=== PATIENT | male | born 1960 | race Caucasian/White ===

== ENCOUNTER → 2020-05-13 16:49 | Outpatient (CLI) | payer MEDICAID, SELFPAY ==
--- NOTE | 2020-05-13 16:54 | CT_ITS ---
ACR Level 3 findings have been noted. An addendum which confirms receipt of the report will follow. STUDY: CT ANGIOGRAM ABDOMEN AND PELVIS WITH CONTRAST REASON FOR EXAM: Male, 59 years old. AAA RADIATION DOSAGE (If Supplied By Facility): CTDIvol = ( 17.60 ) mGy, DLP = ( 350.60 ) mGycm. Individualized dose optimization techniques were used for this CT.? TECHNIQUE: Multiple axial images of the abdomen and pelvis were obtained from the base of the lungs to the proximal femurs after the administration of 100 mL of OMNIPAQUE 300. A series of 3-D MIPS reconstructed images were obtained of the aorta. COMPARISON: None. FINDINGS: There is emphysematous change within the lung bases. There is minimal right lower lobe atelectasis. There is a calcified granuloma in the left lung base. There is mild cardiac enlargement particularly the left ventricle. Area of the liver is homogeneous without visualized focal mass. The gallbladder is contracted. The spleen appears normal there is a 1 cm splenule demonstrated. The pancreas and adrenal glands appear normal. Both kidneys enhance appropriately without focal mass. The stomach and intestine appear normal. There is abundant stool in the colon from the cecum to the rectum. There is diverticulosis without visualized diverticulitis. The appendix is normal. There is mild prostate enlargement the bladder is fairly normal in appearance. The descending thoracic aorta measures 2.0 x 2.2 cm. There is a near common take off of a common hepatic artery. This is adjacent to the takeoff of the gastric and splenic vessels. Superior mesenteric arteries patent. Aorta at the level of the splenic mesenteric artery measures 2.4 x 2 cm. The bilateral renal arteries are patent. Distal to the takeoff of the renal arteries the aorta becomes aneurysmal. This is best demonstrated on image 41 coronal views and 79 and axial views. The lumen measures 2.6 x 3.4 cm over a segment measuring 5.9 cm. However there is abnormal wall thickening which is near circumferential relatively sparing the posterior aspect of the aorta. Including this wall thickening in the measurement the aorta measures 5.8 x 4.4 cm. There is brno-mo-xyaifgfk calcification the take off of the bilateral common iliacs. There is a probable small penetrating ulcer within the left common iliac, image #48 carotid views. There is a focus of moderate narrowing within the right common iliac. There is a small focus of irregular plaque in the right common iliac. There is a narrowed appearance of the bilateral takeoff of the internal iliac arteries. There is mild calcification of the bilateral common iliac arteries which incidentally appear to extend through the aforementioned peripheral soft tissue density surrounding the distal aorta. The abdominal wall appears grossly normal. There is degenerative change at L4-L5 and L5-S1. There is no significant neural foraminal narrowing or central stenosis. CT/CT ANGIO ABD&PEL W/O&W/DYE IMPRESSION: There is a infrarenal abdominal aortic aneurysm. The lumen measures 2.7 x 3.4 cm with the outer wall, included surrounding the aorta the measures 5.8 x 4.4 cm. There is a rim of soft tissue surrounding the wall sparing the posterior wall measuring up to 1.2 cm, surrounding the infrarenal aorta through the bifurcation. 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 The differential could potentially include a thick intramural hematoma. Constipation. 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 Electronically Signed: Susan Garcia MD at 6:36 EDT Tel , Service support ,
[2020-05-13 17:06] LABS: CREATININE FINGERSTICK < 0.6 mg/dL (0.70-1.30); EGFR FINGERSTICK > 60.0000 mL/min (>60)
== END ==
PROVIDERS: Referring Provider Surgery Vascular Surgery; Visit Provider Surgery Vascular Surgery
DX: I71.4 Abdominal aortic aneurysm, without rupture (principal); Z72.0 Tobacco use
CPT/HCPCS: 74174; Q9967

== ENCOUNTER → 2020-05-28 09:27 | Outpatient (CLI) | payer MEDICAID, SELFPAY ==
[2020-05-28 08:51] VITALS: BMI 19.8
[2020-05-28 12:04] LABS: Erythrocyte Sedimentation Rate 21 mm/hr (0-20)
[2020-05-28 12:20] LABS: Absolute Lymphocyte Count 1.51 X10^3/uL (0.83-4.51); Absolute Neutrophil Count 4.7 X10^3/uL (2.0-7.7); Basophil# 0.04 X10^3/uL; Basophil% 0.6 % (0-1); Eosinophil# 0.05 X10^3/uL; Eosinophils% 0.7 % (0-5); Hematocrit 43.3 % (40-54); Lymphocyte # 1.51 X10^3/ul (4.0); Lymphocyte % 21.8 % (19-41); Mean Corp Hgb Conc 32.3 g/dL (32-36); Mean Corpuscular Hgb 29.7 pg (27.0-32.0); Mean Corpuscular Volume 91.9 fL (80-94); Mean Platelet Vol. 10.7 fl (6.2-12.0); Monocyte# 0.59 X10^3/uL; Monocyte% 8.5 % (0-10); NRBC Flagged by Analyzer 0 % (0-5); Neutrophil # 4.73 X10^3/uL (2.7-7.7); Neutrophil % 68.1 % (47-70); Platelet Count 268 K/mm3 (150-450); RBC Distribution Width SD 47.1 fl (35.1-43.9); Red Blood Count 4.71 M/mm3 (4.6-6.2); White Blood Count 6.9 K/mm3 (4.4-11.0)
[2020-05-28 12:47] LABS: ALB/GLOB Ratio 0.8 RATIO (0.9-2.4); AST(SGOT) 16 U/L (15-37); Alanine Aminotransfer ALT/SGPT 22 U/L (16-61); Albumin, Serum 3.6 g/dL (3.2-5.0); Alkaline Phosphatase 99 U/L (45-117); Anion Gap 3 (5-15); BUN 13 mg/dL (7-18); BUN/Creat Ratio 16.8 RATIO (10-20); Calcium,Total 9.1 mg/dL (8.5-10.1); Chloride 104 mmol/L (98-107); Creatinine, Serum 0.77 mg/dL (0.70-1.30); EST Glomerular Filtration Rate 109 mL/min (>60); Est Glom Filt Rate - Afr Amer 132 mL/min (>60); Globulin 4.6 g/dL (2.2-4.2); Glucose 87 mg/dL (74-106); Potassium 4.3 mmol/L (3.5-5.1); Protein, Total 8.2 g/dL (6.4-8.2); Rheumatoid Factor < 10.0 IU/mL (<15); Sodium Level 138 mmol/L (136-145); T4 Free Direct 0.89 ng/dL (0.76-1.46); Thyroid Stim Hormone (TSH) 1.67 uIU/mL (0.358-3.74)
[2020-05-30 10:14] LABS: CCP IgG Antibodies 4 units (0-19)
== END ==
PROVIDERS: PCP Internal Medicine; Referring Provider Internal Medicine; Visit Provider Internal Medicine
DX: I77.6 Arteritis, unspecified (principal); Z13.29 Encounter for screening for other suspected endocrine disorder
CPT/HCPCS: 36415; 80053; 84439; 84443; 85025; 85652; 86140; 86200; 86431

== ENCOUNTER → 2020-05-30 12:13 | Outpatient (CLI) | payer MEDICAID, SELFPAY ==
[2020-05-28 08:51] VITALS: BMI 19.8
--- NOTE | 2020-05-30 12:14 | EKG12_ITS ---
Test Reason : PHYSICAL Blood Pressure : / mmHG Vent. Rate : 073 BPM Atrial Rate : 073 BPM P-R Int : 112 ms QRS Dur : 088 ms QT Int : 392 ms P-R-T Axes : 072 081 045 degrees QTc Int : 431 ms Normal sinus rhythm Normal ECG Confirmed by TABITHA BOB, ANKUR ([id number]), web content editor HEIDE ORTEGA ([id number]) on 05/31/2020 11:38:15 A M Referred By: Nelsy Quintanilla Confirmed By:RIKKI LU MD
== END ==
PROVIDERS: PCP Internal Medicine; Referring Provider Internal Medicine; Visit Provider Internal Medicine
DX: I10 Essential (primary) hypertension (principal); I49.9 Cardiac arrhythmia, unspecified
CPT/HCPCS: 93005

== ENCOUNTER → 2021-04-22 12:03 | Outpatient (CLI) | payer MEDICAID, SELFPAY ==
[2021-04-22 11:15] VITALS: BMI 19.8
[2021-04-22 15:21] LABS: Absolute Lymphocyte Count 2.14 X10^3/uL (0.83-4.51); Absolute Neutrophil Count 5.7 X10^3/uL (2.0-7.7); Basophil# 0.04 X10^3/uL; Basophil% 0.5 % (0-1); Eosinophil# 0.03 X10^3/uL; Eosinophils% 0.3 % (0-5); Hemoglobin 14.9 g/dL (13.0-16.5); Lymphocyte # 2.14 X10^3/ul (0.83-4.51); Lymphocyte % 24.9 % (19-41); Mean Corp Hgb Conc 33.1 g/dL (32-36); Mean Corpuscular Volume 96.8 fL (80-94); Mean Platelet Vol. 11.1 fl (6.2-12.0); Monocyte# 0.71 X10^3/uL; Monocyte% 8.2 % (0-10); NRBC Flagged by Analyzer 0 % (0-5); Neutrophil # 5.66 X10^3/uL (2.7-7.7); Neutrophil % 65.8 % (47-70); Platelet Count 205 K/mm3 (150-450); RBC Distribution Width CV 13.4 % (11.6-14.6); Red Blood Count 4.65 M/mm3 (4.6-6.2); White Blood Count 8.6 K/mm3 (4.4-11.0)
[2021-04-22 15:31] LABS: Erythrocyte Sedimentation Rate 10 mm/hr (0-20)
[2021-04-22 15:48] LABS: Anion Gap 6 (5-15); BUN 10 mg/dL (7-18); BUN/Creat Ratio 10.3 RATIO (10-20); CRP < 2.90 mg/L (0.0-3.0); Chloride 105 mmol/L (98-107); Creatinine, Serum 0.97 mg/dL (0.70-1.30); EST Glomerular Filtration Rate 84 mL/min (>60); Est Glom Filt Rate - Afr Amer 102 mL/min (>60); Glucose 90 mg/dL (74-106); Potassium 4.4 mmol/L (3.5-5.1); Rheumatoid Factor < 10.0 IU/mL (<15); Sodium Level 140 mmol/L (136-145)
[2021-04-25 12:04] LABS: ANTINUCLEAR ANTIBODIES DIRECT Negative (Negative)
== END ==
PROVIDERS: PCP Internal Medicine; Referring Provider Internal Medicine; Visit Provider Internal Medicine
DX: M19.90 Unspecified osteoarthritis, unspecified site (principal)
CPT/HCPCS: 36415; 80048; 85025; 85652; 86038; 86140; 86225; 86235; 86431

== ENCOUNTER → 2021-05-09 13:22 | Outpatient (CLI) | payer MEDICAID, SELFPAY ==
[2021-05-08 08:33] VITALS: BMI 20.5
--- NOTE | 2021-05-09 13:24 | CT_ITS ---
EXAM: CT ANGIOGRAPHY ABDOMEN AND PELVIS WITHOUT AND WITH INTRAVENOUS CONTRAST CLINICAL INDICATION: Lower abdominal pain, history of aortitis/aneurysm TECHNIQUE: Helically acquired angiography images were obtained of the abdomen and pelvis without and with intravenous contrast. This CT exam was performed using one or more of the following dose reduction techniques: automated exposure control, adjustment of the mA and/or kV according to patient size, and/or use of iterative reconstruction technique. This report was created using One [employer] One report generation technology. MIP reconstructed images were created and reviewed. CONTRAST: IV 100mL Isovue-370 COMPARISON: CTA 05/13/2020. FINDINGS: VASCULATURE: AORTA: Infrarenal fusiform abdominal aortic aneurysm measures 3.0 x 3.6 cm. Circumferential thickening (8 mm) aortic wall extends from the PURA to the aortic bifurcation. The wall thickening has overall decreased since prior CT angiogram when it measured up to 11 mm in thickness. No dissection. CELIAC TRUNK AND MESENTERIC ARTERIES: See above. RENAL ARTERIES: No acute findings. No occlusion or significant stenosis. No dissection. ILIAC ARTERIES: Atherosclerosis and tortuosity of the bilateral common iliac arteries but no hemodynamically significant stenosis. No dissection. LOWER THORAX: Unremarkable. Lung bases are clear. No cardiomegaly. No significant pericardial effusion. ABDOMEN: LIVER: Unremarkable. Homogeneous. No focal mass. GALLBLADDER AND BILE DUCTS: Unremarkable. No calcified gallstones. No gallbladder distention or wall edema. No intra- or extrahepatic biliary ductal dilation. PANCREAS: Unremarkable. No focal cystic or solid mass. SPLEEN: Unremarkable. Normal size without focal cystic or solid mass. ADRENALS: Unremarkable. No nodules. KIDNEYS AND URETERS: Unremarkable. Normal renal size and position. No hydronephrosis. STOMACH AND BOWEL: Diverticulosis throughout the colon. No stomach or bowel distention. No focal inflammatory change. PELVIS: APPENDIX: No evidence of acute appendicitis. BLADDER: Unremarkable. REPRODUCTIVE: Unremarkable as visualized. No mass. ABDOMEN and PELVIS: INTRAPERITONEAL SPACE: Unremarkable. No ascites or other fluid collection. No free air. BONES/JOINTS: Unremarkable. No suspicious lytic or blastic abnormality. SOFT TISSUES: Unremarkable. No discrete abdominal or pelvic wall hernia. LYMPH NODES: Unremarkable. No enlarged lymph nodes. 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 Electronically Signed: Tim Sanders MD ([place]) at 9:02 EDT , Service support ,
== END ==
PROVIDERS: PCP Internal Medicine; Referring Provider Internal Medicine; Visit Provider Internal Medicine
DX: I71.4 Abdominal aortic aneurysm, without rupture (principal); I77.6 Arteritis, unspecified; R10.32 Left lower quadrant pain
CPT/HCPCS: 74174; Q9967

== ENCOUNTER 2021-05-20 09:25 | Day surgery (SDC) | payer MEDICAID, SELFPAY ==
[2021-05-08 08:33] VITALS: BMI 20.5
--- NOTE | 2021-05-20 | COLBX_PTH ---
PATIENT: MARCE RIOS LOC: EN U#:[id number] AGE/SX: 60/M ROOM: RE05/20/[address]: Dr. Mich Bates MD : 1960 BED: DIS: 05/20/2021 SPEC #: [id number] RECD: 05/20/21 12:06 STATUS: ROMANA ARMANDOChano #: [id number] MIRNA: 05/20/21 00:[address]: Mich Bates DEPT: SURGICAL PATHOLOGY RECD BY: Jeremie Mckeon ENTERED: 05/20/21 12:07 SP TYPE: COLON BX OTHR DR: Dr. Briseida Mackenzie MD Tissues: A - Duodenum, NOS B - Gastric mucous membrane C - Esophageal mucous membrane Procedures: Surgery Specimen Level IV HEADER OPERATION: Colonoscopy, EGD ([facility] [place] PRE-OP DIAGNOSIS: Constipation, early satiety, weight loss TISSUE SUBMITTED: A - Biopsy of duodenum, B - Biopsy of antrum for H. pylori and path, C - Biopsy of distal esophagus MICROSCOPIC DIAGNOSIS A. 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 B. Gastric antrum, biopsy: Minimal chronic inflammation. See comment. C. Distal esophagus, biopsy: Focal changes of reflux. AM:juliane 05/21/2021 COMMENT B. The results of immunohistochemistry for Helicobacter pylori will be reported separately ([id number]). MICROSCOPIC DESCRIPTION Slides are reviewed. GROSS DESCRIPTION A - Received in fixative is one container labeled with the patient's name and designated duodenum biopsy. The specimen consists of one irregular fragment of light newman soft tissue that measures 0.5 x 0.2 x 0.1 cm. The specimen is totally submitted in one cassette. B - Received in fixative is one container labeled with the patient's name and designated antrum biopsy. The specimen consists of one irregular fragment of light newman soft tissue that measures 0.2 x 0.2 x 0.1 cm. The specimen is totally submitted in one cassette. C - Received in fixative is one container labeled with the patient's name and designated distal esophagus. The specimen consists of one irregular fragment of light newman soft tissue that measures 0.3 x 0.2 x 0.1 cm. The specimen is totally submitted in one cassette. / AM:juliane 05/20/21 TC:3 CPT: 49260 x3
--- NOTE | 2021-05-20 07:30 | IMM_PTH ---
PATIENT: MARCE RIOS LOC: EN U#:[id number] AGE/SX: 60/M ROOM: RE05/20/[address]: Dr. Mich Bates MD : 1960 BED: DIS: 05/20/2021 SPEC #: [id number] RECD: 05/20/21 11:55 STATUS: ROMANA REQ #: [id number] MIRNA: 05/20/21 07:[address]: Mich Bates DEPT: IMMUNOHISTOCHEMISTRY RECD BY: Ida Kaiser ENTERED: 05/20/21 11:55 SP TYPE: IMMUNO OTHR DR: Dr. Briseida Mackenzie MD Tissues: B - Stomach, NOS Procedures: H Pylori (initial) PHYSICIAN & INSTITUTION [place] [id number] SPECIMEN INFORMATION: Tissue Source: B ? Biopsy of antrum Clinical Info: Constipation, early satiety, weight loss Specimen Number: [id number] CPT code: 38122 METHODOLOGY: Deparaffinized sections of prefer/formalin-fixed tissue or PAP/DQ stained slides are incubated with monoclonal/polyclonal antibodies/oligonucleotide probes. Localization is made via biotin free immunoperoxidase method. Appropriate controls are performed and reacted as expected. Results on target cell population are indicated in the following table: RESULTS: ANTIBODY / CLONE RESULT Block B H Pylori (polyclonal) negative These tests were developed and their performance characteristics determined by [facility]. They may not have been cleared or approved by the U.S. Food and Drug Administration. The FDA has determined that such clearance or approval is not necessary. INTERPRETATION: B. Antrum biopsy: Negative for Helicobacter pylori organisms. AM:juliane 05/21/2021
[2021-05-20 09:41] VITALS: BP 129/71; PULSE 95; RESP 16; TEMP 36.9
[2021-05-20] MEDS: Lactated Ringers 1,000 ML 100 ML IV (09:52)
--- NOTE | 2021-05-20 09:54 | HP.PCM_ITS ---
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 Mich Bates MD) AAA (abdominal aortic aneurysm) without rupture Anxiety Constipation Fatigue Heart murmur Weight loss Surgical History (Updated 05/08/21 @ 08:32 by Luz Askew) History of rhinoplasty History of tonsillectomy and adenoidectomy Family History Mother Diabetes Social History (Updated 05/08/21 @ 08:33 by Luz Askew) Smoking Status: Current every day smoker alcohol intake: never substance use type: marijuana caffeine: Yes what type of physical activity do you participate in: none, walking and other details: Hikes with dogs frequency: 3-4 times per week HPI HPI HPI: MARCE RIOS, is a 60 M who presents to the office today for surgical consultation regarding abdominal pain. Patient has orchitis and a abdominal aortic aneurysm. His vascular surgeon is Dr. Reynold Roberts. He is smoking a pack per day cigarettes. He does have problems with progress to constipation. As of April 22, 2021 white blood cell count was 8.6 with hemoglobin 14.9 and hematocrit of 45 and a platelet count of 205,000 with a normal differential. BUN is 10 creatinine 0.97. C-reactive protein at that time was less than 2.9. 1 year prior it had been as high as 14.1. The patient is referred by Dr. Briseida Mackenzie and a written copy of my surgical consult recommendations will return to him. Is of additional note that dictation a year year and a half ago had about a 20 pound weight loss. He is finding it difficult to regain the weight. He also claims that he has a very poor appetite and early satiety. He claims that a year and a half ago for his bowels he would take a tablespoon of Mylanta in the evening and by morning he would have diarrhea now he is just simply trying fruits and high-fiber foods. He is stopped Metamucil and is not taking any antacid. His constipation problems have worsened. ROS General General: Yes weight change and fatigue; No appetite, colon cancer, breast cancer or weakness HEENT HEENT: No difficulty swallowing, eye injury, eye surgery, swollen glands or hoarseness Endo Endocrine: No thyroid disease, diabetes mellitus, thyroid cancer, Hair loss, heat intolerance or cold intolerance Skin Skin: No rash or changing moles Musc Musculoskeletal: Yes back problems and arthritis; No rheumatoid arthritis, gout or joint pain Cardio Cardiovascular: Yes murmur; No pacemaker, heart disease, atrial fibrillation, high blood pressure, heart attack, heart stent, palpitations, shortness of breat with exertion or chest pain Psych Psychiatric: Yes anxiety; No depression or hearing voices Resp Respiratory: No shortness of breath, No sleep apnea, Yes cough, No COPD, No asthma, No emphysema and No wheezing Gastro Gastrointestinal: Yes abdominal pain, No nausea or vomiting, No diarrhea, Yes constipation, No blood in stool, No acid reflux, No hemorrhoids, No ulcers, No gallbladder problem and No black,tarry stools Travis Hematologic: No blood thinners, No blood disorders, No bleeding, No anemia and No blood clots Neuro Neurologic: No weakness Exam Const General: cooperative, comfortable and no acute distress Nutritional Appearance: underweight Orientation: alert and awake [facility] Head: normal to inspection Chest Other: Increased anterior posterior diameter Resp Effort & Inspection: normal respiratory effort Auscultation: clear to auscultation bilaterally Cardio Rate: regular rate GI Palpation: soft and no hepatosplenomegaly Auscultation: normal bowel sounds Other: Nontender Musc Cervical Spine: normal cervical lordosis Neuro General: patient alert, patient awake and patient oriented x3 Extrem General: no calf tenderness Psych Appearance: grossly normal COVID (Procedure Consent) Procedure Criteria Procedure Criteria: Yes Elective The surgeon/proceduralist and patient have discussed in detail the risk of exposure to and/or potential harm posed by the COVID-19 virus with having a surgery/procedure at this time versus the risk of delaying the surgery/procedure. It is not possible to know either the risk of delaying the surgery or procedure or chance of getting an infection with perfect accuracy, but a joint decision was made between the patient and the surgeon/proceduralist to proceed at this time with the scheduled surgery/procedure as indicated on the consent form. Assessment and Plan Assessment and Plan (1) Constipation: Status: Acute Qualifiers: Constipation type: other constipation type Qualified Code(s): K59.09 - Other constipation (2) Early satiety: Status: Acute (3) History of weight loss: Status: Acute Plan - Dr. Mich Bates MD: 60-year-old gentleman. Approximately a year year and a half ago he had almost a 20 pound weight loss. Been able to regain some of the weight but he complains of early satiety and a very poor appetite. He has chronic constipation. He currently is trying to treat that with natural diet. I propose for him a combined esophagogastroduodenoscopy with possible biopsy looking for occult source for early satiety as well as a colonoscopy with possible biopsy or polypectomy as indicated looking for source of severe chronic constipation. He was previously on Metamucil but is currently to keep his bowels moving without it. He will have to go however 3-5 small movements in the morning on just his natural diet. He may well need additional bowel assistance. He has had an opportunity to ask the questions answered. He is back up to smoking at least a pack per day of tobacco as well as additional use. We will utilize monitored anesthesia care. We will utilize a 2-day bowel prep. I appreciate the opportunity of assisting with surgical care Copy: Dr. Briseida Bates M.D., F.A.C.S. Coding Level of Care Code 77234 Diagnoses Constipation K59.09 Constipation type: other constipation type Early satiety R68.81 History of weight loss Z87.898 I have re-examined the patient. There are no clinical changes since date of exam. Mich Bates M.D., F.A.C.S.
--- NOTE | 2021-05-20 10:37 | OP.EGD_ITS ---
Patient Name: John Eric Procedure Date: 05/20/2021 9:42 AM Date of : 1960 Age: 60 Procedure: Upper GI endoscopy Indications: Weight loss Providers: Mich Bates MD Medicines: See the Anesthesia note for documentation of the administered medications Complications: No immediate complications. Procedure: Pre-Anesthesia Assessment: - Prior to the procedure, a History and Physical was performed, and patient medications and allergies were reviewed. The patient's tolerance of previous anesthesia was also reviewed. The risks and benefits of the procedure and the sedation options and risks were discussed with the patient. All questions were answered, and informed consent was obtained. Prior Anticoagulants: The patient has taken no previous anticoagulant or antiplatelet agents. ASA Grade Assessment: II - A patient with mild systemic disease. After reviewing the risks and benefits, the patient was deemed in satisfactory condition to undergo the procedure. After obtaining informed consent, the endoscope was passed under direct vision. Throughout the procedure, the patient's blood pressure, pulse, and oxygen saturations were monitored continuously. The Endoscope was introduced through the mouth, and advanced to the second part of duodenum. The upper GI endoscopy was accomplished without difficulty. The patient tolerated the procedure well. Scope In: 10:09:02 AM Scope Out: 10:12:56 AM Total Procedure Duration Time 0 hours 3 minutes 54 seconds Findings: Esophagitis with no bleeding was found 42 cm from the incisors. Biopsies were taken with a cold forceps for histology. A medium-sized hiatal hernia was present. The entire examined stomach was normal. Biopsies were taken with a cold forceps for histology. The examined duodenum was normal. Biopsies were taken with a cold forceps for histology. Impression: - Reflux esophagitis. Biopsied. - Medium-sized hiatal hernia. - Normal stomach. Biopsied. - Normal examined duodenum. Biopsied. Recommendation: - Discharge patient to home. - Resume previous diet. - Continue present medications. - Telephone my office for pathology results in 1 week. No findings to correlate with early satiety or weight loss Procedure Code(s): --- Professional --- 42474, Esophagogastroduodenoscopy, flexible, transoral; with biopsy, single or multiple Diagnosis Code(s): --- Professional --- K21.0, Gastro-esophageal reflux disease with esophagitis K44.9, Diaphragmatic hernia without obstruction or gangrene R63.4, Abnormal weight loss CPT copyright 2017 [employer]. All rights reserved. The codes documented in this report are preliminary and upon manager procurement review may be revised to meet current compliance requirements. Mich Bates MD 05/20/2021 10:37:05 AM This report has been signed electronically. Number of Addenda: 0 Note Initiated On: 05/20/2021 9:42 AM
--- NOTE | 2021-05-20 10:38 | OP.CCLET_ITS ---
05/20/2021 Briseida Mackenzie [facility] [address] [place] [address] Re : Upper GI endoscopy procedure for John Eric Dear Dr. Mackenzie This procedure was performed on Thursday, May 20, 2021. My impressions and recommendations are as follows: Impressions : - Reflux esophagitis. Biopsied. - Medium-sized hiatal hernia. - Normal stomach. Biopsied. - Normal examined duodenum. Biopsied. Recommendations : - Discharge patient to home. - Resume previous diet. - Continue present medications. - Telephone my office for pathology results in 1 week. No findings to correlate with early satiety or weight loss My findings are described in the full procedure note, which is enclosed. If I can be of further assistance, please feel free to contact me at Doctor phone number(s): Work: . Sincerely, Mich Bates MD 05/20/2021 10:37:05 AM This report has been signed electronically.
[2021-05-20 10:41] VITALS: BP 129/71; BP 91/66; PULSE 82; RESP 16; TEMP 36.5; O2SAT 94
--- NOTE | 2021-05-20 10:41 | OP.COLON_ITS ---
Patient Name: John Eric Procedure Date: 05/20/2021 10:13 AM Date of : 1960 Age: 60 Procedure: Colonoscopy Indications: Constipation Providers: Mich Bates MD Medicines: See the Anesthesia note for documentation of the administered medications Patient Profile: Last Colonoscopy: none. The patient's first colonoscopy is today. Complications: No immediate complications. Procedure: Pre-Anesthesia Assessment: - Prior to the procedure, a History and Physical was performed, and patient medications and allergies were reviewed. The patient's tolerance of previous anesthesia was also reviewed. The risks and benefits of the procedure and the sedation options and risks were discussed with the patient. All questions were answered, and informed consent was obtained. Prior Anticoagulants: The patient has taken no previous anticoagulant or antiplatelet agents. ASA Grade Assessment: II - A patient with mild systemic disease. After reviewing the risks and benefits, the patient was deemed in satisfactory condition to undergo the procedure. After I obtained informed consent, the scope was passed under direct vision. Throughout the procedure, the patient's blood pressure, pulse, and oxygen saturations were monitored continuously. The Colonoscope was introduced through the anus and advanced to the cecum, identified by appendiceal orifice and ileocecal valve. The colonoscopy was performed with moderate difficulty due to multiple diverticula in the colon. The patient tolerated the procedure well. The quality of the bowel preparation was fair. The ileocecal valve and the appendiceal orifice were photographed. Scope In: 10:15:25 AM Scope Withdrawal Time 0 hours 7 minutes 20 seconds Scope Out: 10:31:22 AM Total Procedure Duration Time 0 hours 15 minutes 57 seconds Findings: The digital rectal exam findings include enlarged prostate. Multiple small and large-mouthed diverticula were found in the entire colon. There was no evidence of diverticular bleeding. The exam was otherwise without abnormality. Impression: - Preparation of the colon was fair. - Enlarged prostate found on digital rectal exam. - Severe diverticulosis in the entire examined colon. There was no evidence of diverticular bleeding. - The examination was otherwise normal. - No specimens collected. Recommendation: - Discharge patient to home. - Resume previous diet. - Continue present medications. - Miralax 1 capful (17 grams) in 8 ounces of water PO PRN. - Repeat colonoscopy in 10 years for screening purposes. Very severe diverticular disease of the left colon throughout. This may affect bowel motility. Will recommend MiraLAX therapy. Procedure Code(s): --- Professional --- 63850, Colonoscopy, flexible; diagnostic, including collection of specimen(s) by brushing or washing, when performed (separate procedure) Diagnosis Code(s): --- Professional --- K59.00, Constipation, unspecified K57.30, Diverticulosis of large intestine without perforation or abscess without bleeding N40.0, Benign prostatic hyperplasia without lower urinary tract symptoms CPT copyright 2017 [employer]. All rights reserved. The codes documented in this report are preliminary and upon log raft worker review may be revised to meet current compliance requirements. Mich Bates MD 05/20/2021 10:41:31 AM This report has been signed electronically. Number of Addenda: 0 Note Initiated On: 05/20/2021 10:13 AM
--- NOTE | 2021-05-20 10:42 | OP.CCLET_ITS ---
05/20/2021 Briseida Mackenzie [facility] [address] [place] [address] Re : Colonoscopy procedure for John Eric Dear Dr. Mackenzie This procedure was performed on Thursday, May 20, 2021. My impressions and recommendations are as follows: Impressions : - Preparation of the colon was fair. - Enlarged prostate found on digital rectal exam. - Severe diverticulosis in the entire examined colon. There was no evidence of diverticular bleeding. - The examination was otherwise normal. - No specimens collected. Recommendations : - Discharge patient to home. - Resume previous diet. - Continue present medications. - Miralax 1 capful (17 grams) in 8 ounces of water PO PRN. - Repeat colonoscopy in 10 years for screening purposes. Very severe diverticular disease of the left colon throughout. This may affect bowel motility. Will recommend MiraLAX therapy. My findings are described in the full procedure note, which is enclosed. If I can be of further assistance, please feel free to contact me at Doctor phone number(s): Work: . Sincerely, Mich Bates MD 05/20/2021 10:41:31 AM This report has been signed electronically.
[2021-05-20 10:45] VITALS: BP 129/71; BP 94/72; PULSE 80; RESP 16; O2SAT 94
[2021-05-20 10:50] VITALS: BP 100/74; BP 129/71; PULSE 78; RESP 16; O2SAT 99
[2021-05-20 10:56] VITALS: BP 105/74; BP 129/71; PULSE 79; RESP 16; TEMP 36.2; O2SAT 100
[2021-05-20 11:11] VITALS: BP 103/70; BP 129/71; PULSE 80; RESP 14; O2SAT 100
== END 2021-05-20 11:23 | disposition home or self-care (01) ==
LOC: EN 09:27 → AC 09:28
PROVIDERS: PCP Internal Medicine; Referring Provider Internal Medicine; Visit Provider Surgery
PROC: 0DJD8ZZ Inspection of Lower Intestinal Tract, Via Natural or Artificial Opening Endoscopic (ICD-10-PCS; CPT 45378; principal; 2021-05-20 07:25)
DX: K29.50 Unspecified chronic gastritis without bleeding (principal); K21.00 Gastro-esophageal reflux disease with esophagitis, without bleeding; K44.9 Diaphragmatic hernia without obstruction or gangrene; N40.0 Benign prostatic hyperplasia without lower urinary tract symptoms; K57.30 Diverticulosis of large intestine without perforation or abscess without bleeding; R63.4 Abnormal weight loss; Z68.20 Body mass index [BMI] 20.0-20.9, adult; F17.210 Nicotine dependence, cigarettes, uncomplicated; M19.90 Unspecified osteoarthritis, unspecified site
CPT/HCPCS: 43239; 45378; 87426; 88305; 88342; J7120; J2405

== ENCOUNTER 2021-10-23 14:12 | Outpatient (CLI) | payer MEDICAID, SELFPAY | END 2021-10-23 23:59 | disposition short-term general hospital (02) | LOC: LABSPEC 14:13 | PROVIDERS: PCP Internal Medicine; Referring Provider Internal Medicine; Visit Provider Internal Medicine | DX: U07.1 COVID-19 (principal) | CPT/HCPCS: 87635; U0003; U0005 ==

== ENCOUNTER 2021-12-11 08:42 | Outpatient (CLI) | payer MEDICAID, SELFPAY ==
[2021-12-11 12:42] LABS: Erythrocyte Sedimentation Rate 14 mm/hr (0-20)
[2021-12-11 12:45] LABS: Absolute Lymphocyte Count 2.23 X10^3/uL (0.83-4.51); Absolute Neutrophil Count 3.7 X10^3/uL (2.0-7.7); Basophil# 0.03 X10^3/uL; Basophil% 0.4 % (0-1); Eosinophils% 1.5 % (0-5); Hematocrit 45.7 % (40-54); Hemoglobin 15.6 g/dL (13.0-16.5); Lymphocyte # 2.23 X10^3/ul (0.83-4.51); Lymphocyte % 32.8 % (19-41); Mean Corp Hgb Conc 34.1 g/dL (32-36); Mean Corpuscular Hgb 32.7 pg (27.0-32.0); Mean Corpuscular Volume 95.8 fL (80-94); Mean Platelet Vol. 11.6 fl (6.2-12.0); Monocyte# 0.68 X10^3/uL; NRBC Flagged by Analyzer 0 % (0-5); Neutrophil # 3.73 X10^3/uL (2.7-7.7); Platelet Count 188 K/mm3 (150-450); RBC Distribution Width SD 46.4 fl (35.1-43.9); Red Blood Count 4.77 M/mm3 (4.6-6.2); White Blood Count 6.8 K/mm3 (4.4-11.0)
[2021-12-11 12:56] LABS: ALB/GLOB Ratio 1.1 RATIO (0.9-2.4); AST(SGOT) 13 U/L (15-37); Alanine Aminotransfer ALT/SGPT 18 U/L (16-61); Albumin, Serum 3.9 g/dL (3.2-5.0); Alkaline Phosphatase 79 U/L (45-117); Anion Gap 3 (5-15); BUN 12 mg/dL (7-18); BUN/Creat Ratio 12.3 RATIO (10-20); CRP 5.02 mg/L (0.0-3.0); Calcium,Total 8.9 mg/dL (8.5-10.1); Chloride 105 mmol/L (98-107); Creatinine, Serum 0.97 mg/dL (0.70-1.30); EST Glomerular Filtration Rate 83 mL/min (>60); Est Glom Filt Rate - Afr Amer 101 mL/min (>60); Globulin 3.5 g/dL (2.2-4.2); Glucose 89 mg/dL (74-106); Potassium 4.1 mmol/L (3.5-5.1); Protein, Total 7.4 g/dL (6.4-8.2); Sodium Level 138 mmol/L (136-145)
[2021-12-11 17:08] LABS: Cholesterol 284 mg/dL (200); High Density Lipoprotein 55 mg/dL; Triglycerides 117 mg/dL; Very Low Density Lipoprotein 23 mg/dL (5-40)
== END 2021-12-11 23:59 | disposition home or self-care (01) ==
LOC: BIMLAB 08:43
PROVIDERS: PCP Internal Medicine; Referring Provider Physician Assistant; Visit Provider Physician Assistant
DX: I71.4 Abdominal aortic aneurysm, without rupture (principal); I77.6 Arteritis, unspecified; R10.9 Unspecified abdominal pain; Z13.220 Encounter for screening for lipoid disorders
CPT/HCPCS: 86140; 80053; 80061; 85025; 85652; 36415

== ENCOUNTER 2021-12-11 09:19 | Outpatient (CLI) | payer MEDICAID, SELFPAY ==
--- NOTE | 2021-12-11 09:21 | CT_ITS ---
STUDY: CT ABDOMEN AND PELVIS WITH CONTRAST REASON FOR EXAM: Male, 61 years old. AAA, abdominal pain RADIATION DOSAGE (If Supplied By Facility): CTDIvol = ( 22.38 ) mGy, DLP = ( 469.78 ) mGycm TECHNIQUE: Transaxial images were obtained from the dome of the diaphragm to the symphysis pubis without oral contrast. IV 100mL Isovue-370 was administered. Sagittal and coronal images were reconstructed. Individualized dose optimization techniques were used for this CT. COMPARISON: Comparison is made with prior study dated 05/09/2021. FINDINGS: Mild degree of increased markings at the right lung base suggestive of right basilar dependent atelectasis. The visualized portions of the heart are within normal limits. There is decreased attenuation of the liver consistent with steatosis. The gallbladder is contracted. I suspect tiny gallstones. Normal spleen. Normal pancreas. Normal bilateral adrenal glands. Normal right kidney. Normal left kidney. Normal visualized stomach. Normal small intestine. There are multiple colonic diverticula consistent with diverticulosis. The appendix is visualized and appears normal. Stable infrarenal fusiform abdominal aortic aneurysm with a transverse dimension of 3.3 cm. Mural thrombus is seen. Once again, there is evidence of a wall thickening of the distal portion of the abdominal aorta suggestive of possible inflammatory aortic aneurysm with periaortic fibrosis. Normal inferior vena cava. Normal retroperitoneum. Normal urinary bladder. Normal abdominal wall. There are mild degenerative changes of the visualized lumbar spine. Stable loss of height of the T11 and T12 vertebrae. CT/CT ANGIO ABD&PEL W/O&W/DYE IMPRESSION: Stable examination. Electronically Signed: Seth Smith MD at 10:22 EST ,
[2021-12-11 09:36] LABS: CREATININE FINGERSTICK 0.8 mg/dL (0.70-1.30)
== END 2021-12-11 23:59 | disposition home or self-care (01) ==
LOC: CT 09:20
PROVIDERS: PCP Internal Medicine; Referring Provider Physician Assistant; Visit Provider Physician Assistant
DX: I77.6 Arteritis, unspecified (principal); I71.4 Abdominal aortic aneurysm, without rupture; R10.9 Unspecified abdominal pain; Z13.220 Encounter for screening for lipoid disorders
CPT/HCPCS: 36415; 74174; 80053; 80061; 85025; 85652; 86140; Q9967

== ENCOUNTER → 2022-07-28 | Outpatient (CLI) | payer MEDICAID, SELFPAY | END | disposition home or self-care (01) | LOC: PSN 08:55 | PROVIDERS: PCP Internal Medicine; Referring Provider Internal Medicine; Visit Provider Internal Medicine | DX: R00.2 Palpitations (principal) | CPT/HCPCS: 93225; 93226 ==

== ENCOUNTER → 2022-08-19 | Outpatient (CLI) | payer MEDICAID, SELFPAY ==
--- NOTE | 2022-08-19 09:35 | STRESSREP ---
Stress Test Report Date: 08-19-2022 Procedure: Exercise tolerance test/imaging study Indications: Palpitations Consent: Per the patient Procedure: The patient exercised on a Jesus protocol for 6 minutes completing Stage II achieving a peak heart rate of 136 bpm (85% predicted maximal heart rate) with resting blood pressure of 122/72 mmHg and a peak blood pressure 172/60 mmHg and a peak MET capacity of 7 METs. The baseline ECG demonstrated normal sinus rhythm. The peak exercise ECG demonstrated somatic/motion artifact with approximately 1 to 2 mm of horizontal/upsloping ST segment depression in leads II, III, aVF, and V5 through V6 with subsequent gradual resolution towards baseline in recovery. There were rare PVCs during exercise and rare to occasional PVCs during recovery as well as rare PACs during recovery. The functional capacity was considered average. There was no complaint of chest discomfort during exercise or recovery. The examination was discontinued secondary to dyspnea and leg discomfort. Impression: 1. Technically adequate (percent predicted maximal heart rate greater than 85%) exercise tolerance test 2. Abnormal peak exercise ECG with somatic/motion artifact with approximately 1 to 2 mm of horizontal/upsloping ST segment depression in leads II, III, aVF, and V5 through V6 with subsequent gradual resolution towards baseline in recovery 3. There were rare PVCs during exercise and rare to occasional PVCs during recovery as well as rare PACs during recovery 4. Nuclear images pending Myocardial perfusion imaging study: Technique: The patient was injected with 9.7 mCi of technetium 99m Cardiolite and subsequently rest SPECT Cardiolite nuclear imaging was obtained in the horizontal long, vertical long, and short axis views. The patient exercised on a Jesus protocol for 6 minutes completing Stage II achieving a peak heart rate of 136 bpm (85% predicted maximal heart rate) with resting blood pressure of 122/72 mmHg and a peak blood pressure 172/60 mmHg and a peak MET capacity of 7 METs. The patient was injected with 31.9 mCi of technetium 99m Cardiolite and subsequently stress SPECT Cardiolite nuclear imaging was obtained in the horizontal long, vertical long, and short axis views. A gated Cardiolite study at peak stress was obtained. Interpretation: Rest and stress SPECT Cardiolite nuclear imaging status post realignment, normalization, and attenuation correction, demonstrates the appearance of relative uniform tracer uptake and myocardial perfusion appearing within normal limits. There is end systolic thickening and brightening. The gated Cardiolite study demonstrates myocardial thickening and inward wall motion. The reported LVEF is 61%. Impression: 1. Rest and stress SPECT Cardiolite nuclear imaging demonstrate relative uniform tracer uptake and myocardial perfusion appearing within normal limits. 2. The gated Cardiolite study reports an LVEF of 61%. This note was generated with [employer] software. It may contain incorrect words, spelling, and punctuation that were not noted in checking the note before signing.
== END | disposition home or self-care (01) ==
LOC: CVS 07:05
PROVIDERS: PCP Internal Medicine; Referring Provider Internal Medicine; Visit Provider Internal Medicine
DX: R00.2 Palpitations (principal); I49.3 Ventricular premature depolarization; R06.00 Dyspnea, unspecified
CPT/HCPCS: 78452; 93017; A9500; A4216

== ENCOUNTER → 2023-01-18 | Outpatient (CLI) | payer MEDICAID, SELFPAY ==
--- NOTE | 2023-01-18 09:01 | AAVD_ITS ---
Reason For Study: AAA Aorta Measurements Aorta Doppler Measurements Proximal aorta measures2.30 x 2.43cm. in cross- Peak systolic flow velocities within the proximal sectional axis. aorta measure 71.1 cm/sec. Proximal aorta measures2.31cm. in longitudinal Peak systolic flow velocities within the mid aorta axis. measure 56.4 cm/sec. Mid aorta measures2.18 x 2.20cm. in cross- Peak systolic flow velocities within the distal sectional axis. aorta measure 53.9 cm/sec. Mid aorta measures2.19cm. in longitudinal axis. Distal aorta measures3.33 x 3.57cm. in cross- sectional axis. Distal aorta measures3.28cm. in longitudinal axis. Mural thrombus noted within distal aorta. Distal aorta, true lumen, 1.41 x 2.08 x 2.01 cm. Left Iliac Artery Left iliac artery measures 1.27 x 1.28 cm. in the cross-sectional axis. Left iliac artery measures 1.29 cm. in the longitudinal axis. Peak systolic velocity in the left iliac artery measures 139.7 cm/sec. Right Iliac Artery Right iliac artery measures 1.02 x 1.02 cm. in the cross-sectional axis. Right iliac artery measures 1.07 cm. in the longitudinal axis. Peak systolic velocity in the right iliac artery measures 114.9 cm/sec. Procedure Aorta IVC Iliac vasculature or bypass grafts [id number]. Exam performed in department. VL/Abd Aortic/IVC Duplex scan Interpretation Summary 3.33 x 3.57 cm distal abdominal aortic aneurysm with residual lumen 1.41 x 2.08 cm Irregular right common iliac artery measuring at least 1.02 x 1.02 cm in diamet er Left common iliac artery measuring 1.27 x1.28 cm in diameter Ordering Physician: Briseida Mackenzie Referring Physician: Briseida Mackenzie Performed By: Vida Chacko RVT
[2023-01-18 09:44] LABS: Absolute Lymphocyte Count 1.89 X10^3/uL (0.83-4.51); Absolute Neutrophil Count 3.8 X10^3/uL (2.0-7.7); Basophil# 0.04 X10^3/uL; Basophil% 0.6 % (0-1); Eosinophil# 0.14 X10^3/uL; Eosinophils% 2.2 % (0-5); Hematocrit 43.5 % (40-54); Hemoglobin 14.5 g/dL (13.0-16.5); Lymphocyte # 1.89 X10^3/ul (0.83-4.51); Lymphocyte % 29.2 % (19-41); Mean Corp Hgb Conc 33.3 g/dL (32-36); Mean Corpuscular Hgb 31.9 pg (27.0-32.0); Mean Corpuscular Volume 95.8 fL (80-94); Mean Platelet Vol. 10.2 fl (6.2-12.0); Monocyte# 0.59 X10^3/uL; Monocyte% 9.1 % (0-10); NRBC Flagged by Analyzer 0 % (0-5); Neutrophil # 3.78 X10^3/uL (2.7-7.7); Neutrophil % 58.4 % (47-70); Platelet Count 169 K/mm3 (150-450); RBC Distribution Width CV 12.7 % (11.6-14.6); RBC Distribution Width SD 44.8 fl (35.1-43.9); Red Blood Count 4.54 M/mm3 (4.6-6.2); White Blood Count 6.5 K/mm3 (4.4-11.0)
[2023-01-18 10:21] LABS: AST(SGOT) 15 U/L (15-37); Alanine Aminotransfer ALT/SGPT 16 U/L (16-61); Albumin, Serum 3.5 g/dL (3.2-5.0); Alkaline Phosphatase 86 U/L (45-117); Anion Gap 1 (5-15); BUN 17 mg/dL (7-18); BUN/Creat Ratio 12.2 RATIO (10-20); Calcium,Total 9.1 mg/dL (8.5-10.1); Chloride 109 mmol/L (98-107); Cholesterol 248 mg/dL (200); Creatinine, Serum 1.39 mg/dL (0.70-1.30); EST Glomerular Filtration Rate 55 mL/min (>60); Est Glom Filt Rate - Afr Amer 67 mL/min (>60); Globulin 3.5 g/dL (2.2-4.2); Glucose 88 mg/dL (74-106); High Density Lipoprotein 59 mg/dL; PSA,Total - Annual Screen 0.52 ng/mL (0.00-4.00); Potassium 4.2 mmol/L (3.5-5.1); Sodium Level 138 mmol/L (136-145); Thyroid Stim Hormone (TSH) 1.37 uIU/mL (0.358-3.74); Triglycerides 109 mg/dL; Very Low Density Lipoprotein 22 mg/dL (5-40)
[2023-01-18 10:25] LABS: Vitamin D,25 Hydroxy 20.7 ng/mL
== END | disposition home or self-care (01) ==
LOC: CVS 08:58
PROVIDERS: PCP Internal Medicine; Referring Provider Internal Medicine; Visit Provider Internal Medicine
DX: M19.90 Unspecified osteoarthritis, unspecified site (principal); I71.40 Abdominal aortic aneurysm, without rupture, unspecified; I77.6 Arteritis, unspecified; E78.5 Hyperlipidemia, unspecified; E55.9 Vitamin D deficiency, unspecified; Z12.5 Encounter for screening for malignant neoplasm of prostate; F17.200 Nicotine dependence, unspecified, uncomplicated
CPT/HCPCS: 84153; 36415; 80053; 80061; 82306; 84443; 85025; 93978; G0103

== ENCOUNTER → 2023-06-21 | Outpatient (CLI) | payer MEDICAID, SELFPAY ==
[2023-06-21 09:18] LABS: Absolute Lymphocyte Count 1.99 X10^3/uL (0.83-4.51); Absolute Neutrophil Count 5.1 X10^3/uL (2.0-7.7); Basophil# 0.05 X10^3/uL; Basophil% 0.6 % (0-1); Eosinophil# 0.15 X10^3/uL; Eosinophils% 1.9 % (0-5); Hemoglobin 14.7 g/dL (13.0-16.5); Lymphocyte # 1.99 X10^3/ul (0.83-4.51); Lymphocyte % 24.7 % (19-41); Mean Corp Hgb Conc 32.7 g/dL (32-36); Mean Corpuscular Hgb 31.9 pg (27.0-32.0); Mean Corpuscular Volume 97.6 fL (80-94); Mean Platelet Vol. 10.2 fl (6.2-12.0); Monocyte# 0.75 X10^3/uL; Monocyte% 9.3 % (0-10); NRBC Flagged by Analyzer 0 % (0-5); Neutrophil # 5.09 X10^3/uL (2.7-7.7); Platelet Count 174 K/mm3 (150-450); RBC Distribution Width CV 12.9 % (11.6-14.6); RBC Distribution Width SD 46.2 fl (35.1-43.9); Red Blood Count 4.61 M/mm3 (4.6-6.2); White Blood Count 8.1 K/mm3 (4.4-11.0)
[2023-06-21 10:10] LABS: AST(SGOT) 13 U/L (15-37); Alanine Aminotransfer ALT/SGPT 16 U/L (16-61); Albumin, Serum 3.6 g/dL (3.2-5.0); Alkaline Phosphatase 89 U/L (45-117); Anion Gap 7 (5-15); BUN 14 mg/dL (7-18); BUN/Creat Ratio 10.1 RATIO (10-20); Calcium,Total 8.9 mg/dL (8.5-10.1); Chloride 106 mmol/L (98-107); Creatinine, Serum 1.38 mg/dL (0.70-1.30); EST Glomerular Filtration Rate 55 mL/min (>60); Est Glom Filt Rate - Afr Amer 67 mL/min (>60); Globulin 3.6 g/dL (2.2-4.2); Glucose 96 mg/dL (74-106); Potassium 4.4 mmol/L (3.5-5.1); Protein, Total 7.2 g/dL (6.4-8.2); Sodium Level 141 mmol/L (136-145)
== END | disposition home or self-care (01) ==
LOC: LAB 08:43
PROVIDERS: PCP Internal Medicine; Visit Provider Internal Medicine
DX: R79.89 Other specified abnormal findings of blood chemistry (principal); I77.6 Arteritis, unspecified; I71.40 Abdominal aortic aneurysm, without rupture, unspecified; E78.5 Hyperlipidemia, unspecified
CPT/HCPCS: 36415; 80053; 85025

== ENCOUNTER → 2023-07-07 | Outpatient (CLI) | payer MEDICAID, SELFPAY ==
--- NOTE | 2023-07-07 08:04 | RDU_ITS ---
Reason For Study: Elevated Creatinine Right Renal Artery Left Renal Artery Right renal artery ostium Left renal artery ostium 139.6/43.0 170.6/49.0 RSV/EDV. PSV/EDV. Right renal artery proximal Left renal artery proximal PSV/EDV 164.2/46.6 PSV/EDV. 124.2/36.4 . Right renal artery mid 136.9/38.8 Left renal artery mid 146.2/45.2 PSV/EDV. PSV/EDV . Right renal artery distal Left renal artery distal 113.2/25.5 136.8/42.7 PSV/EDV. PSV/EDV. Right RAR 2.77. Left RAR 2.37. Right Renal Parenchyma Left Renal Parenchyma Upper Pole Medula 34.1/10.2 Left upper pole medulla 23.7/10.5 PSV/EDV. PSV/EDV . Right upper pole medulla EDR 0.30 . Left upper pole medulla EDR 0.40 . Right upper pole medulla R.I. Left upper pole medulla R.I. 0.56 . 0.70 . UP Cortex 15.1/5.1 PSV/EDV. Upper Jose Manuel Cortx 10.7/3.3 PSV/EDV. Left upper pole cortex EDR 0.30 . Right upper pole cortex EDR 0.30 . Left upper pole cortex R.I. 0.66 . Right upper pole cortex R.I. 0.69 . Left lower Pole medulla 36.6/12.0 Right lower Pole medulla 21.2/7.5 PSV/EDV . PSV/EDV . Left lower pole medulla EDR 0.30 . Right lower pole medulla EDR 0.40 . Left lower pole medulla R.I. 0.67 . Right lower pole medulla R.I. Lower Pole Cortx 16.9/7.1 PSV/EDV. 0.65 . Left lower pole cortex EDR 0.40 . Lower Pole Cortex 14.1/5.2 PSV/EDV. Left lower pole cortex R.I. 0.58 . Right lower pole cortex EDR 0.40 . Left Renal Hilar Right lower pole cortex R.I. 0.63 . LT Hilar avg 133.0/38.6 PSV/EDV . Right Renal Hilar Left hilar acceleration time 40 Right Hilar avg 105.2/24.8 PSV/EDV. m/sec. Right hilar acceleration time 30 Left Renal Dimensions m/sec. Left kidney size 9.40 cm . Right Renal Dimensions Left cortical dimension 1.28 cm . Right kidney size 9.10 cm . Right cortical dimension 1.21 cm . multiple anechoic areas noted throughout kidney. Aorta Proximal abdominal aorta 2.4 cm . Proximal abdominal aorta peak systolic velocity is 61.6 cm/sec . Distal abdominal aorta 3.4 cm . Distal abdominal aorta peak systolic velocity is 45.0 cm/sec . VL/Renal Artery Duplex Ultrasound Interpretation Summary Right renal artery patent with normal velocities and no evidence of stenosis Left renal artery patent with normal velocities and no evidence of stenosis Right renal vein patent Left renal vein patent Right kidney normal in size with multiple cystic structures visualized Left kidney normal in size Incidental finding, abdominal aortic aneurysm 3.4 cm in size Ordering Physician: Briseida Mackenzie Referring Physician: Briseida Mackenzie Performed By: Jagdeep Clemons RVT
--- NOTE | 2023-07-07 08:17 | AAVD_ITS ---
Reason For Study: AAA Aorta Measurements Aorta Doppler Measurements Proximal aorta measures2.22 x 2.12cm. in cross- Peak systolic flow velocities within the proximal sectional axis. aorta measure 90.4 cm/sec. Proximal aorta measures2.05cm. in longitudinal Peak systolic flow velocities within the mid aorta axis. measure 51.0 cm/sec. Mid aorta measures2.08 x 2.09cm. in cross- Peak systolic flow velocities within the distal sectional axis. aorta measure 35.1 cm/sec. Mid aorta measures2.03cm. in longitudinal axis. Distal aorta measures3.17 x 3.34cm. in cross- sectional axis. Distal aorta measures3.13cm. in longitudinal axis. Mural Thrombus noted. Left Iliac Artery Left iliac artery measures 1.49 x 1.42 cm. in the cross-sectional axis. Left iliac artery measures 1.50 cm. in the longitudinal axis. Peak systolic velocity in the left iliac artery measures 189.5 cm/sec. Right Iliac Artery Right iliac artery measures 1.27 x 1.22 cm. in the cross-sectional axis. Right iliac artery measures 1.24 cm. in the longitudinal axis. Peak systolic velocity in the right iliac artery measures 195.9 cm/sec. Procedure Aorta IVC Iliac vasculature or bypass grafts [id number]. The exam was diagnostic. Exam performed in department. VL/Abd Aortic/IVC Duplex scan Interpretation Summary Aorta patent with 3.34 cm aneurysm present Bilateral iliac arteries patent, normal caliber Ordering Physician: Briseida Mackenzie Referring Physician: Briseida Mackenzie Performed By: Jagdeep Clemons RVT
== END | disposition home or self-care (01) ==
LOC: US 08:01 → CVS 08:07
PROVIDERS: PCP Internal Medicine; Referring Provider Internal Medicine; Visit Provider Internal Medicine
DX: R79.89 Other specified abnormal findings of blood chemistry (principal); I71.40 Abdominal aortic aneurysm, without rupture, unspecified; F17.200 Nicotine dependence, unspecified, uncomplicated
CPT/HCPCS: 93975; 93978

== ENCOUNTER → 2024-01-11 | Outpatient (CLI) | payer MEDICAID, SELFPAY ==
--- NOTE | 2024-01-11 07:51 | CT_ITS ---
STUDY: LOW DOSE CT LUNG CANCER SCREENING REASON FOR EXAM: Male, 63 years old. Current smoker, and gt;40 p/yr RADIATION DOSAGE (If Supplied By Facility): CTDIvol = ( 2.01 ) mGy, DLP = ( 73.74 ) mGycm TECHNIQUE: No contrast was administered. Low dose technique was utilized (average mAS-38 and kVp 120). 1.25 mm axial source images with a slice interval of 1.25-mm were reconstructed in lung windows. 2.5 mm axial source images with a slice interval of 2.5-mm were reconstructed in lung windows. 5.0 mm axial source images with a slice interval of 5.0-mm were reconstructed in soft tissue windows. COMPARISON: None. NODULES: No suspicious nodules are seen. Emphysema: Hyperinflation. Centrilobular emphysematous changes worse in the right upper lobe. Bilateral apical scarring. Mild scarring at the lung bases. Endobronchial lesion: Unremarkable Aorta: Atherosclerotic plaque formation of the aortic arch. CORONARY ARTERIES: Coronary artery calcification is seen. Heart: Unremarkable Pulmonary artery: Unremarkable Mediastinal nodes: Small mediastinal lymph nodes. Other chest and abdominal findings: CT/Low Dose CT Lung Screening IMPRESSION: Lung-RADS category 2 - Continue annual screening with LDCT in 12 months. IMPORTANT NOTES FOR USE: ACR Lung-RADS Version 1.1 Assessment Categories Release Date: 2018 Category: Coded 0-4 bases on nodule(s) with highest degree of suspicion. Negative screen is defined as categories 1 and 2; a positive screen is defined as categories 3 and 4. Category 3 and 4A nodules that are unchanged on interval CT should be coded as category 2, and individuals returned to screening in 12 months. Category 4X: Category 3 or 4 nodules with additional imaging findings that increase the suspicion of lung cancer, such as spiculation, GGN that doubles in size in 1 year, enlarged lymph notes, etc. Category Modifiers: S (significant finding unrelated to lung cancer) Electronically Signed: Seth Smith MD at 13:18 EDT ,
== END | disposition home or self-care (01) ==
PROVIDERS: PCP Internal Medicine; Referring Provider Internal Medicine; Visit Provider Internal Medicine
DX: F17.200 Nicotine dependence, unspecified, uncomplicated (principal)
CPT/HCPCS: 71271

== ENCOUNTER → 2024-02-22 | Outpatient (CLI) | payer MEDICAID, SELFPAY ==
--- NOTE | 2024-02-22 07:50 | AAVD_ITS ---
Reason For Study: AAA Aorta Measurements Aorta Doppler Measurements Proximal aorta measures2.30 x 2.34cm. in cross- Peak systolic flow velocities within the proximal sectional axis. aorta measure 83.2 cm/sec. Proximal aorta measures2.33cm. in longitudinal Peak systolic flow velocities within the mid aorta axis. measure 41.7 cm/sec. Mid aorta measures1.95 x 1.97cm. in cross- Peak systolic flow velocities within the distal sectional axis. aorta measure 41.7 cm/sec. Mid aorta measures1.91cm. in longitudinal axis. Distal aorta measures3.22 x 3.27cm. in cross- sectional axis. Distal aorta measures3.25cm. in longitudinal axis. Left Iliac Artery Left iliac artery measures 1.30 x 1.33 cm. in the cross-sectional axis. Left iliac artery measures 1.30 cm. in the longitudinal axis. Peak systolic velocity in the left iliac artery measures 273.3 cm/sec. Right Iliac Artery Right iliac artery measures 1.29 x 1.26 cm. in the cross-sectional axis. Right iliac artery measures 1.26 cm. in the longitudinal axis. Peak systolic velocity in the right iliac artery measures 111.7 cm/sec. Procedure Aorta IVC Iliac vasculature or bypass grafts [id number]. The exam was diagnostic. Exam performed in department. VL/Abd Aortic/IVC Duplex scan Interpretation Summary Aorta patent, 3.25 cm aneurysm present. Right iliac artery patent, 1.33 cm ectasia present. Left iliac artery patent, 1.29 cm ectasia present. Ordering Physician: Briseida Mackenzie Referring Physician: Briseida Mackenzie Performed By: Jagdeep Clemons RVT
== END | disposition home or self-care (01) ==
LOC: CVS 07:50
PROVIDERS: PCP Internal Medicine; Referring Provider Internal Medicine; Visit Provider Internal Medicine
DX: I71.40 Abdominal aortic aneurysm, without rupture, unspecified (principal)
CPT/HCPCS: 93978